=== PATIENT | male | born 1955 | race Caucasian/White ===

== ENCOUNTER → 2022-08-29 09:52 | Outpatient (BNVA) | payer BC, SELFPAY | PROVIDERS: PCP Internal Medicine; Visit Provider Nurse Practitioner Family | DX: R35.0 Frequency of micturition (principal); R39.15 Urgency of urination; R35.1 Nocturia; R33.9 Retention of urine, unspecified | CPT/HCPCS: 51798 ==

== ENCOUNTER 2022-10-03 15:33 | Outpatient (REF) | payer BC, MEDICARE, SELFPAY ==
--- NOTE | ~2022-10-03 | US_ITS ---
EXAMINATION: US RETROPERITONEAL COMPLETE (RENAL) CLINICAL INFORMATION: Nocturia. COMPARISON: None available. TECHNIQUE: Real-time imaging of the kidneys and bladder. FINDINGS: RIGHT KIDNEY: 11.8 x 4.1 x 4.7 cm (SAG x AP x TRV). The kidney is normal in size, contour, and echogenicity. Renal cortical thickness is normal. No renal calculi or hydronephrosis. 0.5 x 0.4 x 0.5 cm simple mid and 1.2 x 1.0 x 1.2 cm simple lower pole cyst are seen. No imaging follow-up is recommended. LEFT KIDNEY: 11.2 x 5.0 x 5.3 cm (SAG x AP x TRV). The kidney is normal in size, contour, and echogenicity. Renal cortical thickness is normal. No calculi or focal parenchymal lesions. No hydronephrosis. BLADDER: Partially distended. Bilateral ureteral jets are demonstrated. Prevoid bladder volume is 132.5 mL. Postvoid bladder volume is 1.8 mL. The patient states urgency. The prostate is obscured by the pubic bone. US/US retroperitoneal comp IMPRESSION: 1. Normal renal ultrasound. 2. No significant post void residual.
[2022-10-03 18:57] LABS: Prostate Specific Antigen 0.36 ng/mL (<0.05-4.0)
== END 2022-10-03 15:34 | disposition home or self-care (01) ==
LOC: HO.US 15:33
PROVIDERS: PCP Internal Medicine; Visit Provider Nurse Practitioner Family
DX: Z12.5 Encounter for screening for malignant neoplasm of prostate (principal); N40.0 Benign prostatic hyperplasia without lower urinary tract symptoms; R35.0 Frequency of micturition; R35.1 Nocturia; R39.15 Urgency of urination
CPT/HCPCS: 36415; 76770; 84153

== ENCOUNTER 2022-10-10 14:47 | Outpatient (AMB) | payer MEDICARE, SELFPAY ==
--- NOTE | 2022-10-10 15:06 | A.OFFVIS_ITS ---
Intake Intake Visit Reasons: 6w/US/labs Intake Note: Patient is present for follow up ultrasound/labs/incomplete bladder emptying (psa 0.36) Urology Med: d/c flomax, terazosin Blood Thinner: none PVR: 64ml's Homogenizer Operator Required: No Accompanied by: Self / Same As Patient Allergies No Known Allergies Allergy (Verified 10/12/22 22:07) Medication List - Last Reconciled 10/12/22 by JENELLE Lackey- atorvastatin 40 mg PO DAILY metoprolol succinate ER 25 mg PO DAILY terazosin 5 mg PO BEDTIME 30 days HPI HPI Comments History of Present Illness Details Leo is a pleseant 67-year-old male patient of Dr. Silver. He has a past medical history of ascending aorta dilatation, BPH with nocturia, bradycardia, cardiomyopathy, cervical radiculopathy, hyperlipidemia, obesity, and type 2 diabetes. He presents to the office today for follow-up. Of note, patient was seen as a new patient approximately 6 weeks ago for ongoing urination issues (urinary urgency, urinary frequency, and nocturia) at which time a retroperitoneal ultrasound and PSA were ordered for further assessment evaluation. The patient was also switched from 0.4 mg of Flomax to 5 mg of terazosin daily. These results reviewed with the patient today. Right kidney with no calculi or hydronephrosis. 0.5 x 0.4 x 0.5 cm simple mid and 1.2 x 1.0 x 1.2 cm simple lower pole cysts are seen. No imaging follow- up is recommended per radiology report. Left kidney with no calculi, lesions, and or hydronephrosis. The bladder is well distended. Bilateral ureteral jets are demonstrated. Pre void bladder volume is approximately 135 mL. Postvoid bladder volume is 2 mL. The prostate is obscured by the pubic bone. PSA 10/13--0.4. In discussion with the patient today he reports having started terazosin however stopped due to experiencing new onset that urinary incontinence. He believes medication to have cause this issue. He reports since stopping medication symptoms have since resolved. Discuss trial of alfuzosin verses OAB medications. Patient reports previously following up with [facility] and undergoing Rezum procedure on his prostate and has since been experiencing urinary urgency urinary frequency and nocturia. In office urinalysis results reviewed with the patient today. PVR 64 mL. He otherwise offers no issues or concerns at this time. [facility] Medical History Abnormal CT scan, lung Ascending aorta dilation Benign prostatic hyperplasia with nocturia Bradycardia Cardiomyopathy Cervical radiculopathy Hyperlipidemia, unspecified Obesity, unspecified Snoring Type 2 diabetes mellitus without complications Surgical History History of cholecystectomy S/P placement of cardiac pacemaker Review of Systems Const Reports as per HPI Eyes Reports no additional complaints ENT Reports no additional complaints Card Reports as per HPI Resp Reports as per HPI GI Reports no additional complaints Reports as per HPI Musc Reports no additional complaints Neuro Reports no additional complaints Psych Reports no additional complaints Endo Reports as per HPI Memo/Lymph Reports no additional complaints Aller/Immun Reports no additional complaints Physical Exam Const General: cooperative, comfortable, no acute distress, well developed, alert and awake Orientation/consciousness: patient oriented x3 Limitations: no limitations HEENT Head: Yes normal to inspection, Yes normocephalic and Yes atraumatic Ears: hearing grossly normal bilaterally Eyes General: appearance normal, both eyes and all related structures Neck Neck: Yes normal visual inspection and Yes trachea midline Chest Chest palpation & inspection: normal inspection of the chest Resp Effort & Inspection: normal respiratory effort and able to speak in complete sentences Cardio Rate: regular rate GI Inspection: Yes normal to inspection Rectal Exam - Male: Yes deferred General: Yes no CVA tenderness Back/Spine/Pelvis Back: no CVA tenderness Skin General skin exam: no rashes or lesions noted Neuro General: patient oriented x3 Extrem General: Yes normal to inspection Psych Appearance: grossly normal and well kempt Mental Status: mental status grossly normal Speech and movement: Normal speech and movement present and Clear speech present Affect: normal affect Attitude: cooperative Thought process: Normal thought process present Thought content: Normal thought content present Insight: Fair insight present (Psych) Judgement: Fair judgement present (Psych) Office Procedures Post Void Residual Post Residual Void Post Void Residual (PVR): 64 [id number] Void Residual by ultrasound Results AMB Urinalysis, Automated UA Leukoctes 15 Yasmani/uL Last Edit by Rosa Elena Valencia on 10/10/22 15:21 UA Nitrite Last Edit by Rosa Elena Valencia on 10/10/22 15:21 UA Urobilinogen 0.2 mg/dL Last Edit by Rosa Elena Valencia on 10/10/22 15:21 UA Protein 15 mg/dL Last Edit by Rosa Elena Valencia on 10/10/22 15:21 UA pH 6.0 Last Edit by Rosa Elena Valencia on 10/10/22 15:21 UA Blood 0 Josef/uL Last Edit by Rosa Elena Valencia on 10/10/22 15:21 UA Specific [place] 1.030 Last Edit by Rosa Elena Valencia on 10/10/22 15:21 UA Ketone Negative Last Edit by Rosa Elena Valencia on 10/10/22 15:21 UA Bilirubin 1 mg/dL Last Edit by Rosa Elena Valencia on 10/10/22 15:21 UA Glucose 0 mg/dL Last Edit by Rosa Elena Valencia on 10/10/22 15:21 Results Reviewed Results Reviewed: Laboratory Last Values Urine pH (Auto) 6.0 10/10/22 15:11 Specific [place] (Auto) 1.030 10/10/22 15:11 Urine Protein (Auto) 15 mg/dL 10/10/22 15:11 Glucose (UA)(Auto) 0 mg/dL 10/10/22 15:11 Urine Ketones (Auto) Negative 10/10/22 15:11 Urine Blood (Auto) 0 Josef/uL 10/10/22 15:11 Urine Bilirubin (Auto) 1 mg/dL 10/10/22 15:11 Urine Urobilinogen (Auto) 0.2 mg/dL 10/10/22 15:11 Leukocyte Esterase (Auto) 15 Yasmani/uL 10/10/22 15:11 Date of Service: 10/03/22 US RETROPERITONEAL COMPLETE (RENAL) FINDINGS: RIGHT KIDNEY: 11.8 x 4.1 x 4.7 cm (SAG x AP x TRV). The kidney is normal in size, contour, and echogenicity. Renal cortical thickness is normal. No renal calculi or hydronephrosis. 0.5 x 0.4 x 0.5 cm simple mid and 1.2 x 1.0 x 1.2 cm simple lower pole cyst are seen. No imaging follow-up is recommended. LEFT KIDNEY: 11.2 x 5.0 x 5.3 cm (SAG x AP x TRV). The kidney is normal in size, contour, and echogenicity. Renal cortical thickness is normal. No calculi or focal parenchymal lesions. No hydronephrosis. BLADDER: Partially distended. Bilateral ureteral jets are demonstrated. Prevoid bladder volume is 132.5 mL. Postvoid bladder volume is 1.8 mL. The patient states urgency. The prostate is obscured by the pubic bone. IMPRESSION: ? 1. Normal renal ultrasound. 2. No significant post void residual. Assessment & Plan Assessment & Plan (1) Incomplete bladder emptying: Code(s): R33.9 - Retention of urine, unspecified (2) Urinary urgency: Code(s): R39.15 - Urgency of urination (3) Urinary frequency: Code(s): R35.0 - Frequency of micturition (4) Nocturia: Code(s): R35.1 - Nocturia Plan In office urinalysis results reviewed with the patient today. PVR 64 mL. Recent retroperitoneal ultrasound results reviewed with the patient today; as noted above. Recent PSA results reviewed with the patient today; as noted above. Discussed importance of managing diabetes for improvement in urinary symptoms as well as overall than well-being. Discussed retrial of terazosin 5 mg at bedtime verses alfuzosin verses OAB medications Continue terazosin 5 mg at bedtime Discussed near future in office cystoscopy if symptoms persist and/or worsen Follow-up in 6 weeks with PVR; or sooner with any issues, concerns, and or questions. Orders: Orders AMB Urinalysis Automated 10/10/22 Z13.9 - Encounter for screening, unspecified AMB Post Void Residual by ultrasound 10/10/22 R33.9 - Retention of urine, unspecified Patient Instructions: The patient had an opportunity to ask questions regarding the treatment plan. All questions were answered. Physical exam, labs, and imaging were discussed and reviewed in detail. As well as risks, benefits, and discussion of treatment choices. No major barriers to understanding were identified. The patient expressed understanding and agreement with the above treatment plan. The patient was made aware they should contact our office by phone for worsening of their current condition, the appearance of new symptoms, or with any questions or concerns. Compliance is encouraged with any medications and follow up testing that is ordered. It is a privilege to be allowed the opportunity to participate in? your urological care.? Again, if you have any questions or concerns If you have any questions or concerns please do not hesitate to contact me. The office is [phone]. This note is constructed using voice recognition software. While every effort has been made to ensure accuracy cnc field service engineer errors may have been included. Yours sincerely, HIEU Lackey Coding Level of Care Code Est Pt Level 3 (82388) Diagnoses Incomplete bladder emptying R33.9 Urinary urgency R39.15 Urinary frequency R35.0 Nocturia R35.1 CPT Codes Post Residual Void - PVR CPT Code: 98302-Tcct Void Residual by ultrasound ([id number])
== END 2022-10-10 15:46 | disposition home or self-care (01) ==
PROVIDERS: PCP Internal Medicine; Visit Provider Nurse Practitioner Family
DX: R33.9 Retention of urine, unspecified (principal); R39.15 Urgency of urination; R35.0 Frequency of micturition; R35.1 Nocturia
CPT/HCPCS: 99213

== ENCOUNTER → 2022-10-10 14:47 | Outpatient (BNVA) | payer BC, SELFPAY | PROVIDERS: PCP Internal Medicine; Visit Provider Nurse Practitioner Family | DX: R33.9 Retention of urine, unspecified (principal); R39.15 Urgency of urination; N40.1 Benign prostatic hyperplasia with lower urinary tract symptoms; R35.0 Frequency of micturition; R35.1 Nocturia; Z79.899 Other long term (current) drug therapy | CPT/HCPCS: 51798; 99212 ==

== ENCOUNTER 2022-11-20 14:24 | Outpatient (AMB) | payer MEDICARE, SELFPAY ==
--- NOTE | 2022-11-20 14:53 | MHC.OFFVIS ---
Intake Intake Visit Reasons: 6w/PVR Intake Note: Patient is present for follow up incomplete bladder emptying Urology Med: terazosin Blood Thinner: none PVR: 217ml's Salesforce Trainer Required: No Accompanied by: Self / Same As Patient Allergies No Known Allergies Allergy (Verified 11/20/22 15:28) Medication List - Last Reconciled 11/20/22 by HIEU Lackey atorvastatin 40 mg PO DAILY metoprolol succinate ER 25 mg PO DAILY terazosin 5 mg PO BEDTIME 30 days HPI HPI Comments History of Present Illness Details Leo is a pleseant 67-year-old male patient of Dr. Silver. He has a past medical history of ascending aorta dilatation, BPH with nocturia, bradycardia, cardiomyopathy, cervical radiculopathy, hyperlipidemia, obesity, and type 2 diabetes. He presents to the office today for follow-up. Of note, patient was seen as a new patient approximately 6 weeks ago for ongoing urination issues (urinary urgency, urinary frequency, and nocturia) at which time the Flomax patient was taking was discontinued due to patient reporting retrograde ejaculation. He was started on terazosin however reports to have discontinue this medication as he was experiencing increased urinary frequency and incontinence. In office urinalysis results reviewed with the patient today. PVR 217. Discussed at length potential causes and affects of incomplete bladder emptying. Workup has included a retroperitoneal ultrasound and PSA. Right kidney with no calculi or hydronephrosis. 0.5 x 0.4 x 0.5 cm simple mid and 1.2 x 1.0 x 1.2 cm simple lower pole cysts are seen. No imaging follow-up is recommended per radiology report. Left kidney with no calculi, lesions, and or hydronephrosis. The bladder is well distended. Bilateral ureteral jets are demonstrated. Pre void bladder volume is approximately 135 mL. Postvoid bladder volume is 2 mL. The prostate is obscured by the pubic bone. PSA 10/13--0.4. In discussion with the patient today he discusses wanting to go back on tamsulosin as he reports this medication was affective for his lower urinary tract symptoms however he had been experiencing retrograde ejaculation. Discussed in office cystoscopy for further assessment evaluation. He otherwise offers no issues or concerns at this time. Patient previously following up with [facility] and undergoing Rezum procedure on his prostate and has since been experiencing urinary urgency urinary frequency and nocturia. [facility] Medical History Abnormal CT scan, lung Ascending aorta dilation Benign prostatic hyperplasia with nocturia Bradycardia Cardiomyopathy Cervical radiculopathy Hyperlipidemia, unspecified Obesity, unspecified Snoring Type 2 diabetes mellitus without complications Surgical History History of cholecystectomy S/P placement of cardiac pacemaker Review of Systems Const Reports as per HPI Eyes Reports no additional complaints ENT Reports no additional complaints Card Reports as per HPI Resp Reports as per HPI GI Reports no additional complaints Reports as per HPI Musc Reports no additional complaints Neuro Reports no additional complaints Psych Reports no additional complaints Endo Reports as per HPI Memo/Lymph Reports no additional complaints Aller/Immun Reports no additional complaints Physical Exam Const General: cooperative, comfortable, no acute distress, well developed, alert and awake Orientation/consciousness: patient oriented x3 Limitations: no limitations HEENT Head: Yes normal to inspection, Yes normocephalic and Yes atraumatic Ears: hearing grossly normal bilaterally Eyes General: appearance normal, both eyes and all related structures Neck Neck: Yes normal visual inspection and Yes trachea midline Chest Chest palpation & inspection: normal inspection of the chest Resp Effort & Inspection: normal respiratory effort and able to speak in complete sentences Cardio Rate: regular rate GI Inspection: Yes normal to inspection Rectal Exam - Male: Yes deferred General: Yes no CVA tenderness Back/Spine/Pelvis Back: no CVA tenderness Skin General skin exam: no rashes or lesions noted Neuro General: patient oriented x3 Extrem General: Yes normal to inspection Psych Appearance: grossly normal and well kempt Mental Status: mental status grossly normal Speech and movement: Normal speech and movement present and Clear speech present Affect: normal affect Attitude: cooperative Thought process: Normal thought process present Thought content: Normal thought content present Insight: Fair insight present (Psych) Judgement: Fair judgement present (Psych) Office Procedures Post Void Residual Post Residual Void Post Void Residual (PVR): 217 [id number] Void Residual by ultrasound Results AMB Urinalysis, Automated UA Leukoctes 0 Yasmani/uL Last Edit by Rosa Elena Valencia on 11/20/22 15:33 UA Nitrite Last Edit by Rosa Elena Valencia on 11/20/22 15:33 UA Urobilinogen 0.2 mg/dL Last Edit by Rosa Elena Valencia on 11/20/22 15:33 UA Protein 0 mg/dL Last Edit by Rosa Elena Valencia on 11/20/22 15:33 UA pH 6.0 Last Edit by Rosa Elena Valencia on 11/20/22 15:33 UA Blood 80 Josef/uL Last Edit by Rosa Elena Valencia on 11/20/22 15:33 UA Specific [place] 1.020 Last Edit by Rosa Elena Valencia on 11/20/22 15:33 UA Ketone Last Edit by Rosa Elena Valencia on 11/20/22 15:33 UA Bilirubin 0 mg/dL Last Edit by Rosa Elena Valencia on 11/20/22 15:33 UA Glucose 0 mg/dL Last Edit by Rosa Elena Valencia on 11/20/22 15:33 Results Reviewed Results Reviewed: Laboratory Last Values Urine pH (Auto) 6.0 11/20/22 14:58 Specific [place] (Auto) 1.020 11/20/22 14:58 Urine Protein (Auto) 0 mg/dL 11/20/22 14:58 Glucose (UA)(Auto) 0 mg/dL 11/20/22 14:58 Urine Blood (Auto) 80 Josef/uL 11/20/22 14:58 Urine Bilirubin (Auto) 0 mg/dL 11/20/22 14:58 Urine Urobilinogen (Auto) 0.2 mg/dL 11/20/22 14:58 Leukocyte Esterase (Auto) 0 Yasmani/uL 11/20/22 14:58 Assessment & Plan Assessment & Plan (1) Incomplete bladder emptying: Code(s): R33.9 - Retention of urine, unspecified (2) Lower urinary tract symptoms: Code(s): R39.9 - Unspecified symptoms and signs involving the genitourinary system Plan In office urinalysis results reviewed with the patient today. PVR; 217 mL. Stop terazosin. Restart Flomax 0.4 mg daily as discussed and prescribed. Discussed at length potential causes and affects of incomplete bladder emptying. Discussed possible lower urinary tract symptoms related to previous urological procedure he had at [facility] Follow-up in office cystoscopy as discussed; or sooner with any issues, concerns, and or questions. Orders: Orders AMB Urinalysis Automated Today Z13.9 - Encounter for screening, unspecified AMB Post Void Residual by ultrasound Today R33.9 - Retention of urine, unspecified Medications: New tamsulosin 0.4 mg PO BEDTIME 30 days 30 caps 1RF N40.1 - Benign prostatic hyperplasia with lower urinary tract symptoms, R35.1 - Nocturia Discontinued terazosin Discontinued Reason: Doctor's Order 5 mg PO BEDTIME 30 days 30 caps 1RF N40.1 - Benign prostatic hyperplasia with lower urinary tract symptoms, R35.0 - Frequency of micturition Coding Level of Care Code Est Pt Level 3 (07005) Diagnoses Incomplete bladder emptying R33.9 Lower urinary tract symptoms R39.9 CPT Codes Post Residual Void - PVR CPT Code: 27388-Qvtz Void Residual by ultrasound ([id number])
== END 2022-11-20 15:38 | disposition home or self-care (01) ==
PROVIDERS: PCP Internal Medicine; Visit Provider Nurse Practitioner Family
DX: R33.9 Retention of urine, unspecified (principal); R39.9 Unspecified symptoms and signs involving the genitourinary system
CPT/HCPCS: 99213

== ENCOUNTER → 2022-11-20 14:24 | Outpatient (BNVA) | payer MEDICARE, SELFPAY | PROVIDERS: PCP Internal Medicine; Visit Provider Nurse Practitioner Family | DX: N40.1 Benign prostatic hyperplasia with lower urinary tract symptoms (principal); R33.8 Other retention of urine; R39.15 Urgency of urination; R35.0 Frequency of micturition; R35.1 Nocturia; R39.9 Unspecified symptoms and signs involving the genitourinary system | CPT/HCPCS: 51798; 81003; 99212 ==

== ENCOUNTER 2023-05-28 14:47 | Outpatient (AMB) | payer MEDICARE, SELFPAY ==
--- NOTE | 2023-05-28 15:41 | MHC.OFFVIS ---
Intake Intake Visit Reasons: Cysto Intake Note: Patient presents today for a Cystoscopy Meds: None Allergies to Antibiotic: No Known Allergies Blood Thinner: None Urinalysis test clear for Cysto? Patient stated he stopped taking Tamsulosin due to the medication made him go to the bathroom too often. Disposable Uro-G Cystoscope Cannula: lot: [id number] Exp 08/04/24 Allergies No Known Allergies Allergy (Verified 11/20/22 15:28) HPI HPI Comments History of Present Illness Details Leo is a pleasant male. He is a patient of Dr Calhoun. He is seen for the following urologic conditions - lower urinary tract symptoms Here for office cystoscopy Office cystoscopy shows defect in the area where a median lobe would be expected however there is an extraneous flap of tissue covering the defect area it from the bladder. This is causing irritation. Recommendation for laser of remaining tissue Lower urinary tract symptoms Previously followed with [facility] [place] [facility]. Had a Rezum procedure. Has been experiencing urinary urgency and frequency ever since the procedure. Prior PVR 135, postvoid 2 cc PSA 10/13 0.4 PFSH Medical History (Reviewed 11/20/22 @ 21:[address] [facility] [place]) Abnormal CT scan, lung Ascending aorta dilation Benign prostatic hyperplasia with nocturia Bradycardia Cardiomyopathy Cervical radiculopathy Hyperlipidemia, unspecified Obesity, unspecified Snoring Type 2 diabetes mellitus without complications Surgical History History of cholecystectomy S/P placement of cardiac pacemaker Review of Systems Const Denies chills and Denies fever(s) Card Reports no additional complaints and Denies syncope Resp Denies cough GI Denies abdominal pain and Denies heartburn Reports as per HPI and Denies change in libido Neuro Denies syncope Psych Denies change in libido Endo Denies change in libido Physical Exam Const General: cooperative, healthy appearing, comfortable and no acute distress Orientation/consciousness: patient oriented x3 HEENT Face and sinus: Yes normal facial exam Mouth: moist mucous membranes Neck Neck: Yes normal visual inspection, Yes full ROM and Yes trachea midline Chest Chest palpation & inspection: normal inspection of the chest Resp Effort & Inspection: normal respiratory effort, able to speak in complete sentences and no respiratory distress GI Inspection: Yes normal to inspection Back/Spine/Pelvis Cervical Spine: normal cervical lordosis Thoracic/Lumbar Spine: thoracic and lumbar spine normal to inspection Skin General skin exam: no rashes or lesions noted Neuro General: patient oriented x3, gait normal, tone normal and moves all extremities Extrem General: Yes normal to inspection and Yes capillary refill normal Office Procedures Cystoscopy Consent Discussed risk and benefit or proposed procedure with the patient. Information consent for procedure given to the patient. Discussed technical aspects, risks, benefits and alternatives in full. Addressed all of the patient's questions and concerns regarding the procedure. The patient demonstrated knowledge and understanding. They wish to proceed with this procedure. Preparation The patient was prepped in the usual manner. A django developer was present and in the room. Genitalia was prepped with betadine solution in a sterile manner. Lidocaine Jelly 2% was placed into the urethra and 16Fr flexible Olympus cystoscope was inserted into the meatus after adequate lubrication. Procedure Meatus circumcised Urethra anterior and posterior urethra normal Prostatic Urethra defect undermining trigone with flap of tissue preventing effective emptying Bladder examination with retroflexion of cystoscope Bladder Orifices normal shape and position Bladder Capacity medium Trabeculations trabeculations Cellule Formation - Diverticulum Formation - Mucosal Erythema - Bladder Tumor - [id number] DISPOSABLE SCOPE URO-G FLEXIBLE SCOPE Procedure code (CPT) selection complete Office Meds lidocaine HCl 2 % mucosal jelly in applicator Performing Provider: Jerad Pickens MD Performing Location: [facility] Administered by: Letty Weiner RN on 05/28/23 15:46 Dose Route Admin Location Dispensed Lot Number Expiration Date NDC Educational Administrator 10 mL intra-urethral 10 mL nitrofurantoin monohydrate/macrocrystals 100 mg capsule Performing Provider: Jerad Pickens MD Performing Location: [facility] Administered by: Letty Weiner RN on 05/28/23 15:46 Dose Route Admin Location Dispensed Lot Number Expiration Date NDC Educational Administrator 100 mg PO 1 cap naproxen 500 mg tablet Performing Provider: Jerad Pickens MD Performing Location: [facility] Administered by: Letty Weiner RN on 05/28/23 15:46 Dose Route Admin Location Dispensed Lot Number Expiration Date NDC Educational Administrator 500 mg PO 1 tab Assessment & Plan Assessment & Plan (1) Nocturia: Code(s): R35.1 - Nocturia (2) Incomplete bladder emptying: Code(s): R33.9 - Retention of urine, unspecified (3) Lower urinary tract symptoms: Code(s): R39.9 - Unspecified symptoms and signs involving the genitourinary system Plan We discussed the nature of the decision and reasonable options for performing a prostate intervention. Interventions include TURP, GreenLight laser enucleation of the prostate, GreenLight laser ablation of the prostate, transurethral incision of the prostate, and I-Tend prostate procedure. Options such as medical therapy were discussed. The relative uncertainties and benefits related to each alternate procedure were adequately discussed. General surgical risks including, but not limited to, pain, bleeding, infection, myocardial infarction, pulmonary embolus, deep vein thrombosis and cerebrovascular accident which may result in further hospitalization were discussed. Full disclosure of the procedure as well as all major risks, benefits and complications were discussed including but not limited to damage to the urethra or bladder neck, recurrent BPH, retrograde ejaculation, bladder infection, urge, de josie frequency, incomplete emptying, dysuria, remote chance of erectile dysfunction, epididymitis, and meatal stenosis. The success rate of the procedure was discussed. Success of the procedure in the short-term does not necessarily guarantee that long-term success will be maintained. Suitable follow up will need to be maintained. The patient showed understanding of discussion. An opportunity was provided for questions to be answered and wishes to proceed with the following procedure. - GreenLight laser completion Orders: Orders AMB Cystoscopy 05/28/23 R33.9 - Retention of urine, unspecified, R39.9 - Unspecified symptoms and signs involving the genitourinary system Patient Instructions: Imaging studies, laboratory and physical exam results were discussed and reviewed in detail. No major barriers to patient understanding were identified. An opportunity to ask questions regarding the treatment plan was provided. All questions were answered. The patient expressed understanding and agreement with the above treatment plan. The patient is aware they should contact our office by phone for worsening of their current condition or the appearance of new urologic symptoms. Compliance is encouraged with any medications and followup testing that is ordered. It is a privilege to participate in the urologic care of your patient. If you have any questions or concerns regarding treatment for the above conditions, or other urologic issues, please do not hesitate to contact me. The office telephone contact is [phone]. This note is constructed using voice recognition software. While every effort has been made to ensure accuracy boulevard glassware replacer errors may have been included. Yours sincerely, Dr Jerad Pickens MD, PANKAJ [facility] - Urology Providers of Expert, Compassionate Care for the Genitourinary System Coding Level of Care Code Est Pt Level 4 (81257) Diagnoses Nocturia R35.1 Incomplete bladder emptying R33.9 Lower urinary tract symptoms R39.9 CPT Codes Cystoscopy - CPT: 09461-[id number] ([id number])
== END 2023-05-28 16:17 | disposition home or self-care (01) ==
PROVIDERS: PCP Internal Medicine; Visit Provider Urology
DX: R35.1 Nocturia (principal); R33.9 Retention of urine, unspecified; R39.9 Unspecified symptoms and signs involving the genitourinary system
CPT/HCPCS: 52000; 99214

== ENCOUNTER → 2023-05-28 14:47 | Outpatient (BNVA) | payer MEDICARE, SELFPAY | PROVIDERS: PCP Internal Medicine; Visit Provider Urology | DX: R35.1 Nocturia (principal); R33.9 Retention of urine, unspecified; R39.9 Unspecified symptoms and signs involving the genitourinary system | CPT/HCPCS: 52000; 99212 ==

== ENCOUNTER 2023-08-27 11:10 | Outpatient (AMB) | payer MEDICARE, SELFPAY ==
--- NOTE | 2023-08-27 11:11 | A.OFFVIS_ITS ---
Intake Visit Reasons: H&P Bladder neck resection w Bipolar Button Intake Note: Patient is present for follow up via phone on H&P Bladder neck resection with Bipolar Button: Urology Med: terazosin Blood Thinner: none Ep Specialist Required: No Accompanied by: Self / Same As Patient Allergies No Known Allergies Allergy (Verified 08/27/23 11:13) HPI Comments Details: Leo is a pleasant male. He is a patient of Dr Calhoun. He is seen for the following urologic conditions - lower urinary tract symptoms Telemedicine Evaluation 15 min Consultation [employer] Lib[employer] Video Needs completion procedure following Rezum Office cystoscopy shows defect in the area where a median lobe would be expected however there is an extraneous flap of tissue covering the defect area it from the bladder. This is causing irritation. Recommendation for laser of remaining tissue Lower urinary tract symptoms Previously followed with [facility]. Had a Rezum procedure. Has been experiencing urinary urgency and frequency ever since the procedure. Prior PVR 135, postvoid 2 cc PSA 10/13 0.4 Cystoscopy shows bladder neck contraction PFSH Medical History Abnormal CT scan, lung Ascending aorta dilation Benign prostatic hyperplasia with nocturia Bradycardia Cardiomyopathy Cervical radiculopathy Hyperlipidemia, unspecified Obesity, unspecified Snoring Type 2 diabetes mellitus without complications Surgical History History of cholecystectomy S/P placement of cardiac pacemaker Review of Systems Const All systems reviewed & are unremarkable except as noted in HPI and below Reports no additional complaints Resp Reports no additional complaints GI Reports no additional complaints Reports as per HPI Musc Reports no additional complaints Physical Exam Telemedicine evaluation Appropriate responses Regular breathing rate and rhythm HEENT Head: Yes normal to inspection Ears: hearing grossly normal bilaterally Eyes General: appearance normal, both eyes and all related structures Neck Neck: Yes normal visual inspection Chest Chest palpation & inspection: normal inspection of the chest Resp Effort & Inspection: normal respiratory effort and able to speak in complete sentences Telehealth Telehealth Telehealth Platform: [employer] Location of provider rendering services: practice address Location of patient: address on file Patient Identification confirmed using: Name, : Yes Telehealth method: video Patient verbally consented to treatment: Yes Patient verbally consented to billing insurance company: Yes Patient informed of any privacy concerns related to visit: Yes Minutes spent on Phone/Video with Pt.: 15 Assessment & Plan Assessment & Plan (1) Lower urinary tract symptoms: Code(s): R39.9 - Unspecified symptoms and signs involving the genitourinary system Category: Medical Plan We discussed the nature of the decision and reasonable options for performing a prostate intervention. Interventions include TURP, GreenLight laser enucleation of the prostate, GreenLight laser ablation of the prostate, transurethral incision of the prostate, and I-Tend prostate procedure. Options such as medical therapy were discussed. The relative uncertainties and benefits related to each alternate procedure were adequately discussed. General surgical risks including, but not limited to, pain, bleeding, infection, myocardial infarction, pulmonary embolus, deep vein thrombosis and cerebrovascular accident which may result in further hospitalization were discussed. Full disclosure of the procedure as well as all major risks, benefits and complications were discussed including but not limited to damage to the urethra or bladder neck, recurrent BPH, retrograde ejaculation, bladder infection, urge, de josie frequency, incomplete emptying, dysuria, remote chance of erectile dysfunction, epididymitis, and meatal stenosis. The success rate of the procedure was discussed. Success of the procedure in the short-term does not necessarily guarantee that long-term success will be maintained. Suitable follow up will need to be maintained. The patient showed understanding of discussion. An opportunity was provided for questions to be answered and wishes to proceed with the following procedure. - completion prostate laser Patient Instructions: Imaging studies, laboratory and physical exam results were discussed and reviewed in detail. No major barriers to patient understanding were identified. An opportunity to ask questions regarding the treatment plan was provided. All questions were answered. The patient expressed understanding and agreement with the above treatment plan. The patient is aware they should contact our office by phone for worsening of their current condition or the appearance of new urologic symptoms. Compliance is encouraged with any medications and followup testing that is ordered. It is a privilege to participate in the urologic care of your patient. If you have any questions or concerns regarding treatment for the above conditions, or other urologic issues, please do not hesitate to contact me. The office telephone contact is [phone]. This note is constructed using voice recognition software. While every effort has been made to ensure accuracy roving court reporter errors may have been included. Yours sincerely, Dr Jerad Pickens MD, PANK[facility] - Urology Providers of Expert, Compassionate Care for the Genitourinary System Coding Level of Care Code Tele Est Pt Level 3 (92999) Diagnoses Lower urinary tract symptoms R39.9
== END 2023-08-27 11:34 | disposition home or self-care (01) ==
LOC: HO.HUSH 11:10
PROVIDERS: PCP Internal Medicine; Visit Provider Urology
DX: R39.9 Unspecified symptoms and signs involving the genitourinary system (principal)
CPT/HCPCS: 99213

== ENCOUNTER → 2023-08-27 11:10 | Outpatient (BNVA) | payer MEDICARE, SELFPAY | PROVIDERS: PCP Internal Medicine; Visit Provider Urology ==

== ENCOUNTER 2023-09-15 10:14 | Day surgery (SDC) | payer MEDICARE, SELFPAY ==
[2023-09-15] VITALS (9 sets, daily range): BP systolic 90–160; BP diastolic 50–93; PULSE 64–84; RESP 13–18; TEMP 36.3–36.9; O2SAT 94–98; BMI 31.2
--- NOTE | 2023-09-15 15:27 | P.CONAN_ITS ---
FORM[facility]LY [facility] Active Problems Active Problems: All Active Problems Lower urinary tract symptoms (Acute) Incomplete bladder emptying (Acute) Urinary frequency (Acute) Urinary urgency (Acute) Nocturia (Acute) Past Medical History Medical History Obesity, unspecified Type 2 diabetes mellitus without complications Bradycardia Cervical radiculopathy Hyperlipidemia, unspecified Abnormal CT scan, lung Snoring Ascending aorta dilation Benign prostatic hyperplasia with nocturia Cardiomyopathy Functional capacity: independent ambulation Family History Family history of problems with anesthesia: No Surgical History Surgical History S/P placement of cardiac pacemaker History of cholecystectomy Social History Social History Patient Tobacco Use Status: Never used Tobacco Use of substances other than those prescribed or required for medical reasons: No Are you DNR?: No Advance Directives: No Advance Directives Information Provided: Yes Meds Allergies Allergy/AdvReac Type Severity Reaction Status Date / Time No Known Allergies Allergy Verified 09/15/23 13:47 Home Medications ?Medication ?Instructions ?Recorded ?Confirmed ?Last Taken ?Type atorvastatin 40 mg tablet 40 mg PO DAILY 08/28/22 09/15/23 Unknown History metoprolol succinate 25 mg 25 mg PO DAILY 08/28/22 09/15/23 Unknown History tablet,extended release 24 hr aspirin 81 mg PO DAILY 09/15/23 09/15/23 09/05/23 History Exam Height,Weight and Vital Signs: Height 6 ft 3 in Weight 113.398 kg Last Vital Signs Temp 98.0 F 09/15/23 13:44 Pulse 68 09/15/23 13:44 Resp 18 09/15/23 13:44 BP 160/93 H 09/15/23 13:44 Pulse Ox 98 09/15/23 13:44 O2 Del Method Room Air 09/15/23 13:44 Assessment and Plan Final Anesthetic Review Family History of Problems with Anesthesia: No
--- NOTE | 2023-09-15 15:27 | MHC.SHP ---
Pre-Procedural Eval Section A - 24 Hr Update-Section A only Date of Service: 09/15/23 The patient is an INPATIENT: No Changes since office visit: No Cold of Flu in the past 2 weeks, No New Medical Problems, No Changes in Medication and No Patient answered all questions The patient has been examined within 24 hours of the surgical procedure. The History & Physical has been completed within 30 days and I have reviewed it.: Yes Section B - Complete if H&P > 30 days Chief Complaint: Bladder-neck obstruction Allergies: Allergies Allergy/AdvReac Type Severity Reaction Status Date / Time No Known Allergies Allergy Verified 09/15/23 13:47 Review of Systems Sugical H&P ROS: Negative: Constitution, Cardiovascular, Respiratory, Neurological, Psychiatric, Hem-Onc, Allergic/Immunologic, Gastrointestinal, Genitourinary, Musculoskeletal, Integumentary, Endocrine and Eyes/Ears/Nose/Throat Exam Surgical H&P Exam: Normal: HEENT, Normal: Heart, Normal: Lungs, Normal: Extremities, Normal: Abdomen, Normal: Skin and Normal: Neurological Plan Diagnosis/Plan: Unchanged (Cystoscopy with incision of the prostate) I have reviewed the history and physical and performed a pertinent physical examination on my patient. No changes have occurred unless specified. Time Spent With Patient Time: Total time managing care of this patient today ____ minutes.
--- NOTE | 2023-09-15 15:28 | P.CONAN_ITS ---
FORM[facility]LY [facility] Active Problems Active Problems: All Active Problems Lower urinary tract symptoms (Acute) Incomplete bladder emptying (Acute) Urinary frequency (Acute) Urinary urgency (Acute) Nocturia (Acute) Past Medical History Medical History Obesity, unspecified Type 2 diabetes mellitus without complications Bradycardia Cervical radiculopathy Hyperlipidemia, unspecified Abnormal CT scan, lung Snoring Ascending aorta dilation Benign prostatic hyperplasia with nocturia Cardiomyopathy Functional capacity: independent ambulation Family History Family history of problems with anesthesia: No Surgical History Surgical History S/P placement of cardiac pacemaker History of cholecystectomy History of Problems with Anesthesia: No Social History Social History Patient Tobacco Use Status: Never used Tobacco Use of substances other than those prescribed or required for medical reasons: No Are you DNR?: No Advance Directives: No Advance Directives Information Provided: Yes Meds Allergies Allergy/AdvReac Type Severity Reaction Status Date / Time No Known Allergies Allergy Verified 09/15/23 13:47 Home Medications ?Medication ?Instructions ?Recorded ?Confirmed ?Last Taken ?Type atorvastatin 40 mg tablet 40 mg PO DAILY 08/28/22 09/15/23 Unknown History metoprolol succinate 25 mg 25 mg PO DAILY 08/28/22 09/15/23 Unknown History tablet,extended release 24 hr aspirin 81 mg PO DAILY 09/15/23 09/15/23 09/05/23 History Exam Height,Weight and Vital Signs: Height 6 ft 3 in Weight 113.398 kg Last Vital Signs Temp 98.0 F 09/15/23 13:44 Pulse 68 09/15/23 13:44 Resp 18 09/15/23 13:44 BP 160/93 H 09/15/23 13:44 Pulse Ox 98 09/15/23 13:44 O2 Del Method Room Air 09/15/23 13:44 Airway Mallampati Class: III TM Dist: >3cm Neck ROM: Full Loose/Missing/Broken Teeth: Yes, Upper and Lower Heart: RRR Lungs: CTA Assessment and Plan Assessment Anesthesia Assessment: Anesthesia Plan Discussed Final Anesthetic Review Family History of Problems with Anesthesia: No History of Problems with Anesthesia: No NPO: Yes ASA Class: III Final Preanesthetic Review: Meds/Allgs Chart Reviewed, Consent Obtained/Reviewed and Anes Risks/Benef Reviewed Patient Risk: Intermediate Procedure Risk: Low Anesthetic Plan Anesthetic Plan: GA Disposition: Standard PACU
--- NOTE | 2023-09-15 16:42 | HO.POSTANES ---
Post Anesthesia Evaluation Post Anesthesia Evaluation Date of Service: 09/15/23 Vital Signs: Vital Signs Temp Pulse Resp BP Pulse Ox O2 Del Method O2 Flow Rate 09/15/23 16:33 70 15 90/50 L 95 Nasal Cannula 2 09/15/23 16:28 97.4 F 84 16 99/55 L 94 Nasal Cannula 2 09/15/23 13:44 98.0 F 68 18 160/93 H 98 Room Air Anesthesia: General LMA Mental Status: Awake Pain Control: Satisfactory Nausea/Vomiting: None Hydration: Adequate Anesthesia-Related Issues: No Anes. Related Issues
--- NOTE | 2023-09-15 16:43 | HO.POSTANES ---
Post Anesthesia Evaluation Post Anesthesia Evaluation Date of Service: 09/15/23 Vital Signs: Vital Signs Temp Pulse Resp BP Pulse Ox O2 Del Method O2 Flow Rate 09/15/23 16:38 65 16 110/61 95 Nasal Cannula 2 09/15/23 16:33 70 15 90/50 L 95 Nasal Cannula 2 09/15/23 16:28 97.4 F 84 16 99/55 L 94 Nasal Cannula 2 09/15/23 13:44 98.0 F 68 18 160/93 H 98 Room Air Anesthesia: General LMA Mental Status: Awake Pain Control: Satisfactory Nausea/Vomiting: None Hydration: Adequate Anesthesia-Related Issues: No Anes. Related Issues
[2023-09-15] MEDS: traMADoL HCL 50 MG TABLET PO (16:49)
--- NOTE | 2023-09-15 17:18 | P.OP_ITS ---
Operative Note Operative Note Date of Service: 09/15/23 Narrative: PreOperative Diagnosis: Bladder outlet obstruction recurrent Post Operative Diagnosis: Bladder outlet obstruction - urethral stricture Procedure: cystoscopy, dilate urethral stricture, transurethral incision of the prostate Surgeon: Dr Jeard Pickens Anesthesia: LMA Indications for procedure: Prior Rezum procedure Defect under bladder neck with intervening tissue. Procedure: After informed consent was verified the patient was brought to the operating room and placed in a supine position. Anesthesia was administered per protocol. The patient was placed in modified dorsal lithotomy position and prepped and draped in a sterile fashion. Safety pause time-out was performed. Antibiotics being given. Cystoscopy was performed. Annual stricturing of posterior urethra. Defect within prostate seen. Intervening bladder neck tissue seen. Resectoscope then inserted per urethra. Nguyen knife with settings of 120 cut, 60 coag was used to make incisions at the 5 and 7 o'clock position. Incisions were in line with ureteric orifice. The 24 Cambodian resectoscope was able to be advanced into the bladder. Each incision was taken down so bladder neck fibers were seen. After cutting was performed coagulation was performed in altered minimize bleeding. Incision was 1st made on the patient's right-hand side at the 7 o'clock position. The 2nd incision was made on the left-hand side at the 5 o'clock position. Twenty-four Cambodian [address] Mathur catheter advanced into the bladder. 30 cc placed within balloon. The catheter was placed on tension and clamped. This clamp remain until the patient is in the recovery area. The patient tolerated the procedure well. They were extubated in operating room and transferred in stable conditions recovery area. Pathology: None Drains: None
== END 2023-09-15 17:45 | disposition home or self-care (01) ==
PROVIDERS: PCP Internal Medicine; Visit Provider Urology
PROC: 0T9C8ZZ Drainage of Bladder Neck, Via Natural or Artificial Opening Endoscopic (ICD-10-PCS; CPT 52450; principal; 2023-09-15 14:00)
DX: N32.0 Bladder-neck obstruction (principal); N40.1 Benign prostatic hyperplasia with lower urinary tract symptoms; R35.1 Nocturia; R39.9 Unspecified symptoms and signs involving the genitourinary system; I42.9 Cardiomyopathy, unspecified; R00.1 Bradycardia, unspecified; Z95.0 Presence of cardiac pacemaker; E78.5 Hyperlipidemia, unspecified; E11.9 Type 2 diabetes mellitus without complications; Z79.899 Other long term (current) drug therapy; Z79.82 Long term (current) use of aspirin
CPT/HCPCS: 52450; J1100; J1956; J2250; J2704; J3010

== ENCOUNTER → 2023-09-15 10:14 | Outpatient (BNV) | payer MEDICARE, SELFPAY | PROVIDERS: PCP Internal Medicine; Visit Provider Urology | DX: N32.0 Bladder-neck obstruction (principal) | CPT/HCPCS: 52450 ==

== ENCOUNTER → 2023-09-18 08:02 | Outpatient (BNVA) | payer MEDICARE, SELFPAY | PROVIDERS: PCP Internal Medicine; Visit Provider Urology ==

== ENCOUNTER 2023-10-23 10:55 | Outpatient (AMB) | payer MEDICARE, SELFPAY ==
--- NOTE | 2023-10-23 11:54 | A.OFFVIS_ITS ---
Intake Visit Reasons: Bladder neck resection- follow up Intake Note: Patient is Present for PVR/Bladder Neck Resection Urology Med:None Antibiotic Allergy:None Blood Thinner:Aspirin Last PVR:217 Todays PVR: 51 Allergies No Known Allergies Allergy (Verified 09/15/23 13:47) HPI Comments Details: Leo is a pleasant male. He is a patient of Dr Calhoun. He is seen for the following urologic conditions - lower urinary tract symptoms Follow-up - prostate procedure Significant improvement in urination Needed completion procedure following [facility] Office cystoscopy shows defect in the area where a median lobe would be expected however there is an extraneous flap of tissue covering the defect area it from the bladder. This is causing irritation. Lower urinary tract symptoms Previously followed with [facility]. Had a Rezum procedure. Has been experiencing urinary urgency and frequency ever since the procedure. Prior PVR 135, postvoid 2 cc PSA 10/13 0.4 Cystoscopy shows bladder neck contraction PFSH Medical History Obesity, unspecified Type 2 diabetes mellitus without complications Bradycardia Cervical radiculopathy Hyperlipidemia, unspecified Abnormal CT scan, lung Snoring Ascending aorta dilation Benign prostatic hyperplasia with nocturia Cardiomyopathy Surgical History S/P placement of cardiac pacemaker History of cholecystectomy Social History Patient Tobacco Use Status: Never used Tobacco Review of Systems Const Denies chills and Denies fever(s) Card Reports no additional complaints and Denies syncope Resp Denies cough GI Denies abdominal pain and Denies heartburn Reports as per HPI and Denies change in libido Neuro Denies syncope Psych Denies change in libido Endo Denies change in libido Physical Exam Const General: cooperative, healthy appearing, comfortable and no acute distress Orientation/consciousness: patient oriented x3 HEENT Face and sinus: Yes normal facial exam Mouth: moist mucous membranes Neck Neck: Yes normal visual inspection, Yes full ROM and Yes trachea midline Chest Chest palpation & inspection: normal inspection of the chest Resp Effort & Inspection: normal respiratory effort, able to speak in complete sentences and no respiratory distress GI Inspection: Yes normal to inspection Back/Spine/Pelvis Cervical Spine: normal cervical lordosis Thoracic/Lumbar Spine: thoracic and lumbar spine normal to inspection Skin General skin exam: no rashes or lesions noted Neuro General: patient oriented x3, gait normal, tone normal and moves all extremities Extrem General: Yes normal to inspection and Yes capillary refill normal Office Procedures Post Void Residual Post Residual Void Post Void Residual (PVR): 51 [id number] Void Residual by ultrasound Assessment & Plan Assessment & Plan (1) Nocturia: Code(s): R35.1 - Nocturia Category: Medical (2) Incomplete bladder emptying: Code(s): R33.9 - Retention of urine, unspecified Category: Medical Plan Six-month follow-up PSA Orders: Orders AMB Post Void Residual by ultrasound 10/23/23 R33.9 - Retention of urine, unspecified Prostate Specific Antigen 6 Months R39.9 - Unspecified symptoms and signs involving the genitourinary system Patient Instructions: Imaging studies, laboratory and physical exam results were discussed and reviewed in detail. No major barriers to patient understanding were identified. An opportunity to ask questions regarding the treatment plan was provided. All questions were answered. The patient expressed understanding and agreement with the above treatment plan. The patient is aware they should contact our office by phone for worsening of their current condition or the appearance of new urologic symptoms. Compliance is encouraged with any medications and followup testing that is ordered. It is a privilege to participate in the urologic care of your patient. If you have any questions or concerns regarding treatment for the above conditions, or other urologic issues, please do not hesitate to contact me. The office telephone contact is [phone]. This note is constructed using voice recognition software. While every effort has been made to ensure accuracy wool spotter errors may have been included. Yours sincerely, Dr Jerad Pickens MD, [facility] - [facility]rology Providers of Expert, Compassionate Care for the Genitourinary System Coding Level of Care Code Est Pt Level 3 (11444) Diagnoses Nocturia R35.1 Incomplete bladder emptying R33.9 CPT Codes Post Residual Void - PVR CPT Code: [id number] Void Residual by ultrasound ([id number])
== END 2023-10-23 12:31 | disposition home or self-care (01) ==
PROVIDERS: PCP Internal Medicine; Visit Provider Urology
DX: R35.1 Nocturia (principal); R33.9 Retention of urine, unspecified
CPT/HCPCS: 99024

== ENCOUNTER → 2023-10-23 10:55 | Outpatient (BNVA) | payer MEDICARE, SELFPAY | PROVIDERS: PCP Internal Medicine; Visit Provider Urology | DX: R39.9 Unspecified symptoms and signs involving the genitourinary system (principal); R33.9 Retention of urine, unspecified | CPT/HCPCS: 51798; 99212 ==

== ENCOUNTER 2024-08-11 14:28 | Outpatient (AMB) | payer MEDICARE, SELFPAY ==
--- OUTSIDE RECORDS SUMMARY | 2024-08-11 14:42 | XMS_ITS | Clinical Summary ---
Author Organization [address] [place] [address] Address [address] [place] [address] Phone Care Team Providers Care Undercover Operator Name Role Phone Delroy Silver MD Primary Care Provider [phone] Allergies Active Allergy Reactions Criticality Noted Date Comments Atorvastatin 04/30/2017 Brand name allergy Ezetimibe 04/30/2017 Niacin 04/30/2017 Medications fluticasone furoate-vilanter oL (BREO ELLIPTA) 100-25 mcg/dose inhaler Inhale 1 puff by mouth. 4 Active silver sulfADIAZINE (SILVADENE, SSD) 1 % cream Apply topically to nail bed daily 4 Active albuterol HFA (PROAIR HFA ; PROVENTIL HFA ; VENTOLIN HFA) 90 mcg/actuation inhaler Inhale 2 puffs by mouth. 3 Active aspirin 81 mg EC tablet Take 1 tablet (81 mg total) by mouth 1 (one) time each day. Active miconazole nitrate 2 % aerosol,spray Apply 1 applicator topically. 3 Active metFORMIN XR (GLUCOPHAGE-XR) 500 mg 24 hr tablet Take 2 tablets (1,000 mg total) by mouth 1 (one) time each day before breakfast. 180 tablet 4 Active Additional Information Patient not taking.Reported on 06/03/2024 atorvastatin (LIPITOR) 80 mg tablet Take 1 tablet (80 mg total) by mouth 1 (one) time each day. 90 each 1 4 Active cetirizine (ZyrTEC) 10 mg tablet Take 1 tablet (10 mg total) by mouth 1 (one) time each day. 30 each 5 Active Additional Information Patient not taking.Reported on 06/03/2024 fluticasone propionate (FLONASE) 50 mcg/actuation nasal spray Administer 1 spray into each nostril 2 (two) times a day. Shake gently. Before first use, prime pump. After use, clean tip and replace cap. 16 g 5 Active Additional Information Patient not taking.Reported on 06/03/2024 metoprolol succinate (TOPROL-XL) 25 mg 24 hr tabletIndication s:Cardiomyopathy , unspecified type (CMS/HCC V24, CMS/HCC V28) Take 1 tablet (25 mg total) by mouth 1 (one) time each day. 90 each 3 5 Active Active Problems Problem Noted Date Diagnosed Date Hypertension 06/03/2024 Assessment & Plan (06/03/2024 1:56 PM EDT): Controlled. Continue with metoprolol. Bradycardia 11/12/2023 Cardiomyopathy (CMS/HCC V24, CMS/HCC V28) 2020 Overview (06/03/2024): Nonischemic cardiomyopathy with recovered/preserved ejection fraction October 2022 - echocardiogram showed low normal LV systolic function LVEF 50-55%, normal regional wall motion, mild concentric left ventricular hypertrophy, normal biatrial size, dilatation of the ascending aorta at 4.1cm Assessment & Plan (06/03/2024 1:56 PM EDT): Normalized LV systolic function October 2022. He is compensated on exam as well as through his device monitoring. Continue with metoprolol succinate. We reviewed heart failure management including low-sodium diet, symptom surveillance, daily weights and medication compliance. He has an upcoming echocardiogram. Orders: ECG 12 lead metoprolol succinate (TOPROL-XL) 25 mg 24 hr tablet; Take 1 tablet (25 mg total) by mouth 1 (one) time each day. Assessment & Plan (03/29/2024 4:23 PM EST): Clinically euvolemic. Continue aspirin, atorvastatin, metoprolol. Orders: CBC and differential; Future BPH associated with nocturia 01/28/2020 Overview (11/12/2023): 01/27/2020: Dr. Pa - Sunshine, trospium Ascending aorta dilatation (CMS/HCC V24) 020 Assessment & Plan (06/03/2024 1:56 PM EDT): Mild dilatation on October 2022 echocardiogram - 4.1cm. Good pressure control and will continue with metoprolol. Echocardiogram this summer scheduled. Assessment & Plan (03/29/2024 4:23 PM EST): Echocardiogram ordered be done around 6 to 7 months from now. Orders: Transthoracic echocardiogram (TTE) complete with PRN contrast, bubble, strain, and 3D order panel; Future Pacemaker 02/19/2019 Overview (06/03/2024): December 21, 2018 - implantation of a Biotronik dual chamber pacemaker by Dr. Page for sinus bradycardia Assessment & Plan (06/03/2024 1:56 PM EDT): Functioning well on last check. Continue to monitor through [facility]. Snoring 03/07/2018 Overview (11/12/2023): 02/2018 Home Sleep Study did not reveal sleep apnea. Abnormal CT scan, lung 12/11/2017 Overview (11/12/2023): 6 mm focal pleural thickening - stable over 1 year; no further imaging unless new symptoms Cervical radiculopathy 04/30/2017 Hyperlipidemia 04/30/2017 Assessment & Plan (06/03/2024 1:56 PM EDT): March 2024 - LDL 169. Apparently patient may have not been taking atorvastatin daily. Instructed to do so and Dr. Rivera has reordered a lipid panel. No other changes for now, but if needed could consider adding Zetia. Assessment & Plan (03/29/2024 4:23 PM EST): Follow low-cholesterol diet. Continue atorvastatin. Diabetes mellitus type 2, un complicated ([facility] V24, [facility] V28) 06/19/2009 Obesity 06/19/2009 Resolved Problems Problem Noted Date Diagnosed Date Resolved Date S/P cholecystectomy 03/01/2019 02/11/20 24 Encounters Date Type Department Care Team Description 07/30/2024 Telephone Internal Medicine - [facility] [address] [facility] [place] [phone] Ramos [place] Medicare Annual Wellness Visit Subsequent (AWV DUE after 03/26/2024) 07/29/2024 9:20 AM EDT Ancillary Procedure [facility] - [address] [place] [phone] 07/12/2024 Telephone Internal Medicine - [facility] [address] [place], [place] [address] [address] Sandy Vásquez MA Results 06/03/2024 1:10 PM EDT Office Visit [facility] [address] [place] [phone] Dann Monson NP Cardiomyopathy, unspecified type ([facility] V24, [facility] V28) (Primary Dx); Hyperlipidemia, unspecified hyperlipidemia type; Hypertension, unspecified type; Pacemaker; Ascending aorta dilatation ([facility] V24) 06/03/2024 Telephone Internal Medicine - [facility] [address] [facility] [place] [phone] Sherice Milligan, RN Medicare Annual Wellness Visit Subsequent from Last 3 Months Immunizations Name Administration Dates Next Due Influenza Quadravalent, MDCK , 0.5ml, preservative free (Flucelvax) 6mo and older 01/30/2021,01/05/2020,01/14/2019,01/21 Influenza trivalent, 0.5mL ( Fluad) 65yo and older 12/24/2023 Influenza trivalent, 0.5mL ( Fluzone High-dose) 65yo and older 01/24/2023,12/25/2021 Influenza trivalent, 0.5mL, preservative free (Fluarix; FluLaval; Fluzone) ages 6mo and older (Afluria) 3 years and older 03/27/2016,03/11/2015 Influenza trivalent, with pr eservative (Fluzone; Afluria) 6mo and older 01/22/2008 Pneumococcal conjugate 13 va lent (Prevnar 13, PCV13) 2mo and older 05/31/2021 Pneumococcal polysaccharide 23 valent (Pneumovax 23) 2yo and older 06/19/2022,03/27/2016,01/06/2000 Td Tetanus diptheria (Tdvax) 7yo and older 06/24/2006 Tdap Tetanus diptheria acell ular pertussis (Boostrix; Adacel) 7yo and older 04/17/2017,10/21/2012 Zoster Live 03/27/2016 Surgical History Surgery Date Site/Laterality Comments COLONOSCOPY 07/21/2007 PROCEDURE: HISTORICAL COLONOSCOPY COLONOSCOPY 12/08/2017 PROCEDURE: HISTORICAL COLONOSCOPY; COMMENT: Hemorrhoids, diverticulosis, repeat colonoscopy in 10 years CHOLECYSTECTOMY PROCEDURE: [place] LAPAROSCOPY SURG CHOLECYSTECTOMY Medical History Medical History Date Comments Bradycardia DX:Bradycardia Diabetes mellitus type 2, uncomplicated (CMS/HCC V24, CMS/HCC V28) 06/19/2009 DX:Diabetes mellitus type 2, uncomplicated ([facility]) Hyperlipidemia 04/30/2017 DX:Hyperlipidemi a Cervical radiculopathy 04/30/2017 DX:Cervic al radiculopathy Abnormal CT scan, lung 12/11/2017 DX:Abnorm al CT scan, lung S/P placement of cardiac pacemaker 02/19/2019 DX:S/P placement of cardiac pacemaker; COMMENT: On 12/21/18- dr page S/P cholecystectomy 03/01/2019 DX:S/P edelmira cystectomy BPH associated with nocturia 01/28/2020 DX: BPH associated with nocturia; COMMENT: 01/27/2020: Dr. Pa - Sunshine, trospium Family History Medical History Relation Name Comments Breast cancer Mother arthritis, emilia al failure Heart attack Paternal Grandfather in his 60's Relation Name Status Comments Father (Age 74) / Maternal Grandmother (Age 80's) cad Mother (Age 62) Breast can cer Paternal Grandfather (Age 60's) mi Sister Alive Social History Tobacco Use Types Packs/Day Years Used Date Smoking Tobacco: Never Smokeless Tobacco: Never Tobacco Cessation:Counseling Given: Not Answered Alcohol Use Standard Drinks/Week Comments Yes 0 (1 standard drink = 0.6 oz pur e alcohol) Sex and Gender Information Value Date Recorded Sex Assigned at Not on file Legal Sex Male 7:00 PM EST Gender Identity Not on file Sexual Orientation Not on file Obstetrics History Last Filed Vital Signs Vital Sign Reading Time Taken Comments Blood Pressure 118/78 06/03/2024 1:02 PM EDT Pulse 75 06/03/2024 1:02 PM EDT Temperature - - Respiratory Rate - - Oxygen Saturation 98% 06/03/2024 1:02 PM EDT Inhaled Oxygen Concentration - - Weight 110 kg (243 lb) 06/03/2024 1:02 PM EDT Height 190.5 cm (6' 3 ) 06/03/2024 1:02 PM EDT Body Mass Index 30.37 06/03/2024 1:02 PM EDT Plan of Treatment Upcoming Encounters Date Type Department Care Team (Late st Contact Info) Description 09/27/2024 1:30 PM EDT Ancillary Procedure [facility] [address] [facility] [address] [place] [address] 05/05/2025 11:00 AM EST Ancillary Procedure [facility] [address] [facility] [address] [place] [address] Health Maintenance Due Date Last Done Comments Diabetes: Annual Foot Exam 02/27/1966 Diabetes: Annual Retina Eye Exam 02/27/1966 RSV Immunization Adult Patients (1 - Risk 60-74 years 1-dose series) 2016 Zoster Vaccines (2 of 3) 05/22/2016 03/27/2016 Depression Screening 03/02/2022 Falls Risk Assessment 03/02/2022 Medicare Annual Wellness Visit 03/02/2022 Social Influencers of Health Screening 03/02/2022 COVID-19 Vaccine ( season) 2023 12/25/2022, 05/03/2022, 03/10/2021, Additional history exists Diabetes: Blood Sugar Control Test (HGBA1C) 10/18/2024 04/20/2024, 07/08/2023 Diabetes: Annual Urine Albumin-Creatinine Ratio (uACR) 04/20/2025 04/20/2024, 09/18/2022 Diabetes: Annual GFR (Glomerular Filtration Rate) 04/20/2025 04/20/2024, 07/08/2023 Hypertension/CHF/CAD Annual BMP Blood Test 04/20/2025 04/20/2024, 07/08/2023 DTaP,Tdap,and Td Vaccines (4 - Td or Tdap) 04/17/2027 04/17/2017, 10/21/2012, 06/24/2006 Colorectal Cancer Screening: Colonoscopy 12/09/2027 12/08/2017 Cholesterol Screening (Lipid Panel) 07/09/2029 07/09/2024, 04/20/2024, 07/08/2023 Hepatitis C Screening Completed 04/17/2017 Pneumococcal Vaccine: 50+ Years Completed 06/19/2022, 05/31/2021, 03/27/2016, Additional history exists Influenza Vaccine Completed 12/24/2023, , 12/25/2021, Additional history exists HIB Vaccines Aged Out No longer eligi ble based on patient's age to complete this topic HPV Vaccines Aged Out No longer eligi ble based on patient's age to complete this topic Hepatitis A Vaccines Aged Out No long er eligible based on patient's age to complete this topic Hepatitis B Vaccines Aged Out No long er eligible based on patient's age to complete this topic IPV Vaccines Aged Out No longer eligi ble based on patient's age to complete this topic MMR Vaccines Aged Out No longer eligi ble based on patient's age to complete this topic Meningococcal ACWY Vaccine Aged Out N o longer eligible based on patient's age to complete this topic Meningococcal B Vaccine Aged Out No l onger eligible based on patient's age to complete this topic RSV Immunization Patients Under 20 months Aged Out No longer eligible based on patient's age to complete this topic Varicella Vaccines Aged Out No longer eligible based on patient's age to complete this topic Medical Devices Implanted Type Area Rod Tape Operator Device Identifier Shelf Expiration Date Model / Serial / Lot Biot-Manu Edora 8 Omari [id number] Implanted:11/24 by Barbara Page MD (Quantity not on file) Cardiac Pacemaker Left: Chest [employer] EDORA 8 OMARI / [id number] / Procedures Procedure Name Priority Date/Time Associated Diagnosis Comments CARDIAC DEVICE CHECK- REMOTE- MURJ Routine 07/29/2024 9:19 AM EDT LIPID PANEL WITH REFLEX TO DIRECT LDL Routine 07/09/2024 4:38 PM EDT Hyperlipidemia, unspecified hyperlipidemia type PROSTATE SPECIFIC ANTIGEN SCREEN Routine 07/09/2024 4:38 PM EDT Genitourinary symptoms ECG 12-LEAD Routine 06/03/2024 1:50 PM EDT Cardiomyopathy, unspecified type (CMS/HCC V24, CMS/HCC V28) MICROALBUMIN CREATININE URINE RATIO Routine 04/20/2024 4:45 PM EST Type 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, uncontrolled(250.42) (CMS/HCC V24, CMS/HCC V28) COMPREHENSIVE METABOLIC PANEL Routine 04/20/2024 4:45 PM EST Type 2 diabetes mellitus with hyperglycemia, without long-term current use of insulin (CMS/HCC V24, CMS/HCC V28) HEMOGLOBIN A1C Routine 04/20/2024 4:45 PM EST Type 2 diabetes mellitus with hyperglycemia, without long-term current use of insulin (CMS/HCC V24, CMS/HCC V28) HM COLONOSCOPY Routine 12/08/2017 HEPATITIS C SCREENING Routine 04/17/2017 from Last 3 Months or Most Recently Relevant to Health Maintenance Results * Cardiac device check - Remote- MURJ (07/29/2024 9:19 AM EDT) Date Time Interrogation Session [id number] CV DEVICE CHECK Type Interrogation Session RemoteScheduled CV DEVICE CHECK Implantable Pulse Generator Rod Tape Operator BIO CV DEVICE CHECK Implantable Pulse Generator Type IPG CV DEVICE CHECK Implantable Pulse Generator Model Edora 8 DR-T CV DEVICE CHECK Implantable Pulse Generator Serial Number [id number] CV DEVICE CHECK Implantable Pulse Generator Implant Date [id number] CV DEVICE CHECK Battery Remaining Percentage 55.00 CV DEVICE CHECK Battery Status Middle of Service CV DEVICE CHECK Aashish Statistic RA Percent Paced 91.00 CV DEVICE CHECK Aashish Statistic RV Percent Paced 0.00 CV DEVICE CHECK Atrial Tachy Statistic AT/AF Baldwin Percent 0.00 CV DEVICE CHECK Lead Channel Sensing Intrinsic Amplitude 3.200 CV DEVICE CHECK Lead Channel Impedance Value 527 CV DEVICE CHECK Lead Channel RA Pacing Threshold Date 2024-07-20 CV DEVICE CHECK Lead Channel Setting Pacing Amplitude 1.700 CV DEVICE CHECK Lead Channel Setting Pacing Pulse Width 0.4 CV DEVICE CHECK Lead Channel Sensing Intrinsic Amplitude 8.300 CV DEVICE CHECK Lead Channel Impedance Value 507 CV DEVICE CHECK Lead Channel Pacing Threshold Amplitude 1.300 CV DEVICE CHECK Lead Channel Pacing Threshold Pulse Width 0.4 CV DEVICE CHECK Lead Channel RV Pacing Threshold Date 2024-07-20 CV DEVICE CHECK Lead Channel Setting Pacing Amplitude 1.800 CV DEVICE CHECK Lead Channel Setting Pacing Pulse Width 0.4 CV DEVICE CHECK Aashish Setting Mode (NBG Code) DDD-CLS CV DEVICE CHECK Aashish Setting Lower Rate Limit 60 CV DEVICE CHECK Aashish Setting AT Mode Switch Rate 160 CV DEVICE CHECK Aashish Setting Maximum Tracking Rate 130 CV DEVICE CHECK Aashish Setting Maximum Sensor Rate 120 CV DEVICE CHECK Aashish Setting PAV Delay 205 CV DEVICE CHECK Aashish Setting LINA Delay 185 CV DEVICE CHECK Date of Service 2024-08-11 CV DEVICE CHECK Anatomical Region Laterality Modality Device Interroga tion 07/20/2024 1:13 AM EDT Impressions 07/29/2024 9:07 AM EDT Normal Remote: No Events * Normal Device Function * Alerts or events: None * Battery: Battery is at 55%, * Sensing, impedance and thresholds reviewed * Programmed parameters reviewed * Presenting rhythm reviewed * Heart Rate Histograms reviewed * No significant changes noted Narrative Procedure Note Barbara Page MD - 07/29/2024 IMPRESSION: Normal Remote: No Events * Normal Device Function * Alerts or events: None * Battery: Battery is at 55%, * Sensing, impedance and thresholds reviewed * Programmed parameters reviewed * Presenting rhythm reviewed * Heart Rate Histograms reviewed * No significant changes noted Barbara Page MD CV IMPLANTABLE CARDIAC DEV ICE PROCEDURES Final Result * Prostate specific antigen screen (07/09/2024 4:38 PM EDT) PSA 0.42 0.00 - 4.00 ng/mL LAB CHEMISTRY METHOD 07/09/2024 8:19 PM EDT [facility] Blood Venous blood specimen / Unknown Venipuncture / Unknown 07/09/2024 4:38 PM EDT 07/09/2024 4:38 PM EDT Narrative [facility] - 07/09/2024 8:19 PM EDT The Siemens Advia Centaur Chemiluminescent Immunoassay is used. Results obtained with different assay methods or kits cannot be used interchangeably. Results cannot be interpreted as absolute evidence of the presence or absence of malignant disease. Jerad Pickens MD LAB BLOOD ORDERABLES Final Re sult [facility] [address] [place] [address], [place] [phone] * (ABNORMAL) Lipid panel with reflex to direct LDL (07/09/2024 4:38 PM EDT) Cholesterol 235(H) 0 - 200 mg/dL LAB CHEMISTRY METHOD 07/09/2024 7:58 PM EDT [facility] Triglycerides 245(H) 0 - 150 mg/dL LAB CHEMISTRY METHOD 07/09/2024 7:58 PM EDT [facility] HDL 33(L) >=40 mg/dL LAB CHEMISTRY METHOD 07/09/2024 7:58 PM EDT [facility] LDL Calculated 153(H) 0 - 100 mg/dL LAB CHEMISTRY METHOD 07/09/2024 7:58 PM EDT [facility] VLDL Cholesterol Rivera 49 mg/dL LAB CHEMISTRY METHOD 07/09/2024 7:58 PM EDT [facility] Non HDL Chol. (LDL+VLDL) 202(H) <145 mg/dL LAB CHEMISTRY METHOD 07/09/2024 7:58 PM EDT [facility] Chol/HDL Ratio 7.1(H) 0.0 - 4.4 LAB CHEMISTRY METHOD 07/09/2024 7:58 PM EDT [facility] Blood Venous blood specimen / Unknown Venipuncture / Unknown 07/09/2024 4:38 PM EDT 07/09/2024 4:38 PM EDT Delroy Silver MD LAB BLOOD ORDERABLES Linda l Result [facility] [address] [place] [address], [place] [phone] * ECG 12 lead (06/03/2024 1:50 PM EDT) Ventricular Rate ECG 79 BPM GEMUSE Atrial Rate 79 BPM GEMUSE P-R Interval 242 ms GEMUSE QRS Duration 96 ms GEMUSE Q-T Interval 388 ms GEMUSE QTc 444 ms GEMUSE P Wave [place] 33 degrees GEMUSE R [place] -17 degrees GEMUSE T [place] -19 degrees GEMUSE ECG Interpretation Atrial-paced rhythm with prolonged AV conduction Voltage criteria for left ventricular hypertrophy Nonspecific T wave abnormality Abnormal ECG When compared with ECG of 15-FEB-2019 12:22, Inverted T waves have replaced nonspecific T wave abnormality in Inferior leads Nonspecific T wave abnormality now evident in Anterior leads Confirmed by ROSARIO LANGE ([id number]) on 06/03/2024 5:22:28 PM GEMUSE 06/03/2024 1:13 PM EDT 06/03/2024 5:22 PM EDT Dann Monson DRAMA DIRECTOR ECG ORDERABLES Edited Resu lt - Final GEMUSE * Microalbumin creatinine urine ratio (04/20/2024 4:45 PM EST) Creatinine, Urine 232.0 mg/dL LAB CHEMISTRY METHOD 04/20/2024 7:17 PM EST [facility] Microalb, Ur 15.5 0.0 - 29.0 mg/L LAB CHEMISTRY METHOD 04/20/2024 7:17 PM EST [facility] Microalb/Creat Ratio 7 <30 mg/g creat LAB CHEMISTRY METHOD 04/20/2024 7:17 PM EST [facility] Urine Urine specimen obtained by clean catch procedure / Unknown Non-blood Collection / Unknown 04/20/2024 4:45 PM EST 04/20/2024 4:45 PM EST Delory Silver MD LAB URINE ORDERABLES Linda l Result Performing Organization Address City/[facility]/ZIP Co de Phone Number [facility] [address] [place] [address], [place] [phone] * (ABNORMAL) Hemoglobin A1c (04/20/2024 4:45 PM EST) [facility] Hemoglobin A1C 6.6(H) <6.5 % LAB CHEMISTRY METHOD 04/20/2024 9:18 PM EST [facility] Mean Bld Glu Estim. 143 mg/dL LAB CHEMISTRY METHOD 04/20/2024 9:18 PM EST [facility] Blood Venous blood specimen / Unknown Venipuncture / Unknown 04/20/2024 4:45 PM EST 04/20/2024 4:45 PM EST us Delroy Silver MD LAB BLOOD ORDERABLES Linda l Result [facility] [address] [place] [address], [place] [phone] * (ABNORMAL) Comprehensive metabolic panel (04/20/2024 4:45 PM EST) Sodium 138 133 - 145 mmol/L LAB CHEMISTRY METHOD 04/20/2024 7:07 PM [facility] Potassium 4.5 3.5 - 5.5 mmol/L LAB CHEMISTRY METHOD 04/20/2024 7:07 PM [facility] Chloride 106 96 - 110 mmol/L LAB CHEMISTRY METHOD 04/20/2024 7:07 PM [facility] CO2 29 21 - 32 mmol/L LAB CHEMISTRY METHOD 04/20/2024 7:07 PM [facility] Anion Gap 3 3 - 11 LAB CHEMISTRY METHOD 04/20/2024 7:07 PM [facility] Glucose 136(H) 70 - 100 mg/dL LAB CHEMISTRY METHOD 04/20/2024 7:07 PM [facility] BUN 11 5 - 25 mg/dL LAB CHEMISTRY METHOD 04/20/2024 7:07 PM [facility] Creatinine 1.03 0.70 - 1.30 mg/dL LAB CHEMISTRY METHOD 04/20/2024 7:07 PM [facility] eGFR 79 >=60 mL/min/1. 73m2 LAB CHEMISTRY METHOD 04/20/2024 7:07 PM [facility] Comment:Calculation based on the??Chronic Kidney Disease Epidemiology Collaboration (CKD-EPI) equation refit??without adjustment for race. BUN/Creatinine Ratio 10.7 LAB CHEMISTRY METHOD 04/20/2024 7:07 PM [facility] Calcium 8.9 8.5 - 10.5 mg/dL LAB CHEMISTRY METHOD 04/20/2024 7:07 PM [facility] AST (SGOT) 21 10 - 42 unit/L LAB CHEMISTRY METHOD 04/20/2024 7:07 PM [facility] ALT (SGPT) 31 10 - 60 unit/L LAB CHEMISTRY METHOD 04/20/2024 7:07 PM [facility] Alkaline Phosphatase 90 42 - 121 unit/L LAB CHEMISTRY METHOD 04/20/2024 7:07 PM EST [facility] Total Protein 7.6 6.0 - 8.0 g/dL LAB CHEMISTRY METHOD 04/20/2024 7:07 PM EST [facility] Albumin 4.0 3.2 - 5.0 g/dL LAB CHEMISTRY METHOD 04/20/2024 7:07 PM EST [facility] Total Bilirubin 0.8 0.0 - 1.4 mg/dL LAB CHEMISTRY METHOD 04/20/2024 7:07 PM EST [facility] Blood Venous blood specimen / Unknown Venipuncture / Unknown 04/20/2024 4:45 PM EST 04/20/2024 4:45 PM EST Delroy Silver MD LAB BLOOD ORDERABLES Linda l Result [facility] [address] [place] [address], * Colonoscopy (12/08/2017) [facility] Colonoscopy no interpretation , abstracted Anatomical Region Laterality Modality Other Historical Provider HEALTH MAINTENANCE Final Result * Hepatitis C Screening (04/17/2017) [facility] Hepatitis C Screening ABSTRACTED Historical Provider HEALTH MAINTENANCE Final Result from Last 3 Months or Most Recently Relevant to Health Maintenance Insurance [employer] - [place] MEDICARE ADVANTAGE Care Teams Undercover Operator Relationship Specialty Start Date End Date Delroy Silver MD [address] [place] [address] PCP - General Internal Medicine 04/03/17
--- OUTSIDE RECORDS SUMMARY | 2024-08-11 14:42 | XMS_ITS | Encounter Summary ---
[facility] [place] [address] Care Team Providers Care Lab Support Tech Name Role Phone Delroy Silver MD Primary Care Provider [phone] Reason for Visit * Reason Onset Date Comments Medicare Annual Wellness Visit Subsequent 2024 AWV DUE after 03/26/2024 Encounter Details Date Type Department Care Team (Late st Contact Info) Description 07/30/2024 Telephone Internal Medicine - [address] [place] [address] [address] [place] Annual Wellness Visit Subsequent (AWV DUE after 03/26/2024) Social History Tobacco Use Types Packs/Day Years Used Date Smoking Tobacco: Never Smokeless Tobacco: Never Alcohol Use Standard Drinks/Week Comments Yes 0 (1 standard drink = 0.6 oz pur e alcohol) Sex and Gender Information Value Date Recorded Sex Assigned at Not on file Legal Sex Male 7:00 PM EST Gender Identity Not on file Sexual Orientation Not on file documented as of this encounter Progress Notes * Ct Ramos [place] - 07/30/2024 10:36 AM EDT Message left for patient to contact the Quality Department in reference to booking an Annual Wellness Visit appt tracy/Sherice Wellness Nurse after 03/26/2024. Transfer to [address] Ramos @ [id number]. PT is on the June/2024 report. documented in this encounter Plan of Treatment Upcoming Encounters Date Type Department Care Team (Late st Contact Info) Description 09/27/2024 1:30 PM EDT Ancillary Procedure [facility] Cardiology [facility] [address] [place] [address] 05/05/2025 11:00 AM EST Ancillary Procedure [facility] [address] [place] [address] documented as of this encounter Visit Diagnoses Not on filedocumented in this encounter Care Teams Lab Support Tech Relationship Specialty Start Date End Date Delroy Silver MD [address] [place] [address] PCP - General Internal Medicine 04/03/17 documented as of this encounter
--- NOTE | 2024-08-11 15:07 | A.OFFVIS_ITS ---
Intake Visit Reasons: 6m/labs Intake Note: Patient is present for 6M LABS Urology Medication:NONE Antibiotic Allergy:NONE Blood Thinner:ASPIRIN Waterproofing Supervisor Required: No Allergies No Known Allergies Allergy (Verified 08/11/24 15:08) HPI Comments Details: Leo is a pleasant male. He is a patient of Dr Calhoun. He is seen for the following urologic conditions - lower urinary tract symptoms One year follow-up after Procedure Urination maintain Twelve month follow-up PVR Needed completion procedure following [facility] cystoscopy shows defect in the area where a median lobe would be expected however there is an extraneous flap of tissue covering the defect area it from the bladder. This is causing irritation. Lower urinary tract symptoms Previously followed with [facility]. Had a [facility] procedure. Has been experiencing urinary urgency and frequency ever since the procedure. Prior PVR 135, postvoid 2 cc PSA 10/13 0.4, 08/15 0.7 Cystoscopy shows bladder neck contraction GreenLight laser 09/14 [facility] Medical History Obesity, unspecified Type 2 diabetes mellitus without complications Bradycardia Cervical radiculopathy Hyperlipidemia, unspecified Abnormal CT scan, lung Snoring Ascending aorta dilation Benign prostatic hyperplasia with nocturia Cardiomyopathy Surgical History S/P placement of cardiac pacemaker History of cholecystectomy Social History Patient Tobacco Use Status: Never used Tobacco Review of Systems Const Denies chills and Denies fever(s) Card Reports no additional complaints and Denies syncope Resp Denies cough GI Denies abdominal pain and Denies heartburn Reports as per HPI and Denies change in libido Neuro Denies syncope Psych Denies change in libido Endo Denies change in libido Physical Exam Const General: cooperative, healthy appearing, comfortable and no acute distress Orientation/consciousness: patient oriented x3 HEENT Face and sinus: Yes normal facial exam Mouth: moist mucous membranes Neck Neck: Yes normal visual inspection, Yes full ROM and Yes trachea midline Chest Chest palpation & inspection: normal inspection of the chest Resp Effort & Inspection: normal respiratory effort, able to speak in complete sentences and no respiratory distress GI Inspection: Yes normal to inspection Back/Spine/Pelvis Cervical Spine: normal cervical lordosis Thoracic/Lumbar Spine: thoracic and lumbar spine normal to inspection Skin General skin exam: no rashes or lesions noted Neuro General: patient oriented x3, gait normal, tone normal and moves all extremities Extrem General: Yes normal to inspection and Yes capillary refill normal Results AMB Urinalysis, Automated UA Leukoctes 0 Yasmani/uL Last Edit by JUN Espinosa on 08/11/24 15:57 UA Nitrite Negative Last Edit by Jane Villegas [facility] on 08/11/24 15:57 UA Urobilinogen 3.5 mg/dL Last Edit by Jane Villegas [facility] on 08/11/24 15:5 7 UA Protein 15 mg/dL Last Edit [facility] 08/11/[facility] 15:57 UA pH 5.5 Last Edit by Jane Villegas [facility] on 08/11/24 15:57 UA Blood 0 Josef/uL Last Edit by JUN Espinosa on 08/11/24 15:57 UA Specific [place] 1.025 Last Edit by Jane Villegas [facility] on 08/11/24 15: 57 UA Ketone Negative Last Edit by JUN Espinosa on 08/11/24 15:57 UA Bilirubin 0 mg/dL Last Edit by Jane Villegas [facility] on 08/11/24 15:57 UA Glucose 0 mg/dL Last Edit by Jane Villegas [facility] on 08/11/24 15:57 Results Reviewed Results Reviewed: Laboratory Last Values Urine pH (Auto) 5.5 08/11/24 15:56 Specific [place] (Auto) 1.025 08/11/24 15:56 Urine Protein (Auto) 15 mg/dL 08/11/24 15:56 Glucose (UA)(Auto) 0 mg/dL 08/11/24 15:56 Urine Ketones (Auto) Negative 08/11/24 15:56 Urine Blood (Auto) 0 Josef/uL 08/11/24 15:56 Urine Nitrite (Auto) Negative 08/11/24 15:56 Urine Bilirubin (Auto) 0 mg/dL 08/11/24 15:56 Urine Urobilinogen (Auto) 3.5 mg/dL 08/11/24 15:56 Leukocyte Esterase (Auto) 0 Yasmani/uL 08/11/24 15:56 Assessment & Plan Assessment & Plan (1) Nocturia: Code(s): R35.1 - Nocturia Category: Medical (2) Incomplete bladder emptying: Code(s): R33.9 - Retention of urine, unspecified Category: Medical Plan Twelve month follow-up PVR Orders: Orders AMB Urinalysis Automated Today Z13.9 - Encounter for screening, unspecified Patient Instructions: This note is constructed using voice recognition software. While every effort has been made to ensure accuracy candle pourer errors may have been included. Imaging studies, laboratory and physical exam results were discussed and reviewed in detail. No major barriers to patient understanding were identified. An opportunity to ask questions regarding the treatment plan was provided. All questions were answered. The patient expressed understanding and agreement with the above treatment plan. The patient is aware they should contact our office by phone for worsening of their current condition or the appearance of new urologic symptoms. Compliance is encouraged with any medications and followup testing that is ordered. It is a privilege to participate in the urologic care of your patient. If you have any questions or concerns regarding treatment for the above conditions, or other urologic issues, please do not hesitate to contact me. The office tele phone contact is [phone]. Sincerely, Dr Jerad Pickens MD, P[facility] - Urology Compassionate Specialist Care for the Genitourinary System Coding Level of Care Code Est Pt Level 3 (26575) Diagnoses Nocturia R35.1 Incomplete bladder emptying R33.9
== END 2024-08-11 15:34 | disposition home or self-care (01) ==
LOC: HO.HUSH 14:29
PROVIDERS: PCP Internal Medicine; Visit Provider Urology
DX: R35.1 Nocturia (principal); R33.9 Retention of urine, unspecified; Z13.9 Encounter for screening, unspecified
CPT/HCPCS: 99213

== ENCOUNTER → 2024-08-11 14:28 | Outpatient (BNVA) | payer MEDICARE, SELFPAY | PROVIDERS: PCP Internal Medicine; Visit Provider Urology | DX: R35.1 Nocturia (principal); R33.9 Retention of urine, unspecified | CPT/HCPCS: 81003; 99212 ==